=== PATIENT | female | born 1975 | race Two or more races ===

== ENCOUNTER 2021-01-26 06:00 | Day surgery (SDC) | payer OTHER | END 2021-01-26 23:00 | disposition home or self-care (01) | LOC: CIR.AMB 06:00 → ADM 12:15 → CIR.AMB 12:15 | PROVIDERS: ATTEND Obstetrics & Gynecology Obstetrics | DX: N93.8 Other specified abnormal uterine and vaginal bleeding (principal); Z20.822 Contact with and (suspected) exposure to COVID-19 ==